=== PATIENT | male | born 1950 | race Caucasian/White ===

== ENCOUNTER → 2017-11-03 | Outpatient (CLI) | payer MEDICARE, OTHER ==
[~2017-11-03] MED LIST: ALPR1TAB2 PO; ASPI-696; ESOM40CA; EZET1TAB35; FLUO20CA19; HYDR-3307; LOSA1TAB7; METO25TA91
== END | disposition home or self-care (01) ==
LOC: RAD 10:27
PROVIDERS: ATTEND Internal Medicine
DX: K57.30 Diverticulosis of large intestine without perforation or abscess without bleeding (principal); N28.1 Cyst of kidney, acquired; N17.9 Acute kidney failure, unspecified
CPT/HCPCS: 74176

== ENCOUNTER 2018-08-02 11:43 | Outpatient (CLI) | payer MEDICARE, OTHER ==
[2018-08-02 12:20] LABS: CREATININE 1.71 mg/dL (0.7-1.3)
[2018-08-02] MEDS ORDERED: OMNIPAQUE 350 MG/ML, 100ML BOTTLE ONE (15:00)
== END 2018-08-02 23:59 | disposition home or self-care (01) ==
LOC: RAD 11:43
PROVIDERS: ATTEND Internal Medicine
DX: K80.20 Calculus of gallbladder without cholecystitis without obstruction (principal); N28.1 Cyst of kidney, acquired; N32.89 Other specified disorders of bladder; M43.8X4 Other specified deforming dorsopathies, thoracic region
CPT/HCPCS: 36415; 74177; 82565; 84520; Q9967

== ENCOUNTER → 2020-12-23 | Outpatient (CLI) | payer MEDICARE, OTHER ==
[~2020-12-23] MED LIST changes: +ATOR-2 PO; +HYDR-3248; -HYDR-3307; +LEVO25TA4 PO; +METF500T17 PO; +PANT40TA6 PO; +PROP20TA PO; +SACC250C4 PO; +TRAZ-175 PO; +VALS1TAB29 PO; +VANC1VIA36 PO
== END | disposition home or self-care (01) ==
LOC: CARD 10:27
PROVIDERS: ATTEND Psychiatry & Neurology Neurology
DX: S54 Injury of nerves at forearm level (principal); E11.42 Type 2 diabetes mellitus with diabetic polyneuropathy; G56.03 Carpal tunnel syndrome, bilateral upper limbs; X58.XXXS Exposure to other specified factors, sequela
CPT/HCPCS: 95886; 95908